=== PATIENT | male | born 1950 | race Caucasian/White ===

== ENCOUNTER 2018-06-02 07:40 | Outpatient (CLI) | payer OTHER ==
--- NOTE | 2018-06-04 20:04 | MRI Report ---
Procedure Date: 06/02/2018 Accession Number: [id number] / [id number] Procedure: MRI - Brain W/O CPT Code: FULL RESULT: EXAM: MRI BRAIN WITHOUT CONTRAST EXAM DATE: 06/02/2018 08:37 AM. CLINICAL HISTORY: 67-year-old male, chronic headache, history of TBI. COMPARISON: None. TECHNIQUE: Multiplanar, multisequence T1-weighted and fluid-sensitive MR sequences of the brain were performed. Sequences optimized for routine evaluation. Other: None. IV Contrast: None. FINDINGS: Brain Volume: Normal for age. Parenchyma/Dura: No mass, acute infarct or hemorrhage. Moderate scattered T2/FLAIR hyperintense periventricular, deep, and subcortical white matter lesions within cerebral hemispheres bilaterally. No parenchymal foci of susceptibility artifact. Ventricles/Cisterns: No hydrocephalus. No abnormal extra-axial fluid collection or hemorrhage. Orbits: Status post right lens replacement surgery. Otherwise unremarkable. Sella Turcica: The pituitary gland, cavernous sinuses, suprasellar cistern and optic chiasm are unremarkable. IAC: Symmetric and unremarkable. Vasculature: Normal signal flow void is seen in the major arterial structures at the skull base. Sinuses: No acute appearing sinus disease. Bones: No focal pathologic appearing marrow signal changes. Other: None. IMPRESSION: 1. No MRI evidence of acute intracranial abnormality. Specifically, no evidence of acute or subacute infarct, acute intracranial hemorrhage, mass, midline shift, or hydrocephalus. 2. Moderate scattered T2/FLAIR hyperintense periventricular, deep, and subcortical white matter lesions within cerebral hemispheres bilaterally. These lesions are nonspecific, and can be seen with the entire gamut of white matter conditions, including migraine headaches and as sequela of chronic microangiopathy. RADIA
== END 2018-06-02 07:41 | disposition home or self-care (01) ==
LOC: DI 07:40
PROVIDERS: ATTEND Family Medicine
DX: R51 Headache (principal); Z87.820 Personal history of traumatic brain injury
CPT/HCPCS: 70551

== ENCOUNTER 2019-02-22 07:58 | Outpatient (CLI) | payer OTHER | END 2019-02-22 07:59 | disposition critical access hospital (66) | LOC: EMS 07:58 | PROVIDERS: ATTEND Surgery | DX: R07.9 Chest pain, unspecified (principal) | CPT/HCPCS: A0425; A0427 ==

== ENCOUNTER 2019-02-22 08:28 | Emergency (ER) | payer OTHER ==
[2019-02-22] MEDS ORDERED: amLODIPine 5 MG TABLET PO STA (08:48)
[2019-02-22] MEDS ORDERED: SODIUM CHLORIDE 0.9% 1,000 ML IV ONE (08:48)
--- NOTE | 2019-02-22 08:51 | ED Physician Documentation ---
PD HPI CHEST PAIN - Stated complaint Stated Complaint: CP - Chief complaint Chief Complaint: Cardiac - History obtained from History obtained from: Patient, Family, EMS - History of Present Illness Timing - onset: Enter time (544), Today Timing - onset during: Rest Timing - duration: Minutes Timing - details: Abrupt onset, Still present Pain level max: 7 Pain level now: 1 Quality: Aching Location: Substernal Radiation: Neck Improved by: Rest, Nitro Associated symptoms: No: Shortness of air, Diaphoresis, Nausea, Vomiting, Feeling faint / dizzy, General Weakness, Palpitations, Cough Similar symptoms before: Has not had sx before Recently seen: Not recently seen - Additional information Additional information: 68-year-old male with a history of hypertension has developed substernal chest pain this morning and his blood pressure is noted to be markedly elevated with systolics over 200. He is brought to the hospital by ambulance having received nitroglycerin and aspirin and his pain is mostly resolved. He states that he had previously been on amlodipine and hydrochlorothiazide and he developed a lot of muscle cramping and difficulty walking and so he discontinued these medications and has been on prazosin which has been working. He states he took his prazosin last night 4 mg and this morning 2 mg. He denies any likelihood of alcohol withdrawal as he drinks once to twice per week and he does state that he did have some salty meal yesterday but not anything in excess. Review of Systems Constitutional: denies: Fever, Chills, Myalgias, Fatigue Eyes: denies: Decreased vision Ears: denies: Ear pain Nose: denies: Rhinorrhea / runny nose, Congestion Throat: denies: Sore throat Cardiac: reports: Chest pain / pressure. denies: Palpitations, Pedal edema, Calf pain Respiratory: denies: Dyspnea, Cough GI: denies: Abdominal Pain, Nausea, Vomiting : denies: Dysuria, Frequency PD PAST MEDICAL HISTORY - Past Medical History Cardiovascular: Hypertension Psych: Post traumatic stress disorder - Present Medications Home Medications: Ambulatory Orders Medication Instructions Recorded Confirmed Prazosin HCl [Minipress] 12 mg PO DAILY 10/25/14 10/25/14 oxyCODONE/ACET 5/325 [Percocet 5 1 - 2 each PO Q4-6H PRN #15 tablet 10/25/14 mg/325 mg] amLODIPine [Norvasc] 10 mg PO DAILY #20 tablet 02/22/19 - Allergies Allergies/Adverse Reactions: Allergies Allergy/AdvReac Type Severity Reaction Status Date / Time codeine Allergy Severe Hives Verified 02/22/19 08:35 - Social History Does the pt smoke?: No Smoking Status: Never smoker Does the pt drink ETOH?: No Does the pt have substance abuse?: No - Immunizations Immunizations are current?: Yes - POLST Patient has POLST: No PD ED PE NORMAL - Vitals Vital signs reviewed: Yes (hypertension marked ) - General General: Alert and oriented X 3, No acute distress, Well developed/nourished - HEENT HEENT: Atraumatic, PERRL, EOMI - Neck Neck: Supple, no meningeal sign, No bony TTP - Cardiac Cardiac: RRR, No murmur - Respiratory Respiratory: No respiratory distress, Clear bilaterally - Abdomen Abdomen: Soft, Non tender - Back Back: No CVA TTP, No spinal TTP - Derm Derm: Normal color, Warm and dry, No rash - Extremities Extremities: No deformity, No edema - Neuro Neuro: Alert and oriented X 3, 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, No motor deficit, No sensory deficit, Normal speech Eye Opening: Spontaneous Motor: Obeys Commands Verbal: Oriented GCS Score: 15 - Psych Psych: Normal mood, Normal affect Results - Vitals Vitals: Vital Signs - 24 hr 02/22/19 02/22/19 02/22/19 08:32 09:26 12:17 Temperature 36.3 C L 36.2 C L Heart Rate 86 69 83 Respiratory 18 12 18 Rate Blood Pressure 202/104 H 160/84 H 187/101 H O2 Saturation 98 98 97 Oxygen O2 Source Room air - EKG (time done) 0837 Rate: Rate (enter#) (79) QRS: LVH, Poor R wave progression Ischemia: Normal ST segments Compare to prior EKG: Old EKG unavailable Computer interpretation: Agree with computer - Labs Labs: Laboratory Tests 02/22/19 02/22/19 02/22/19 08:57 08:57 08:57 WBC 6.5 RBC 4.76 Hgb 13.7 L Hct 41.7 L MCV 87.8 MCH 28.9 MCHC 32.9 RDW 13.7 Plt Count 200 MPV 8.0 Neut # (Auto) 4.7 Lymph # (Auto) 1.1 L Mccone # (Auto) 0.4 Eos # (Auto) 0.1 Baso # (Auto) 0.1 Absolute Nucleated RBC 0.00 Nucleated RBC % 0.1 Sodium 137 Potassium 3.7 Chloride 104 Carbon Dioxide 24 Anion Gap 9.0 BUN 16 Creatinine 0.9 Estimated GFR (MDRD) 83 L Glucose 131 H Calcium 9.0 Total Bilirubin 0.5 AST 24 ALT 19 Alkaline Phosphatase 54 Troponin I < 0.04 Total Protein 7.6 Albumin 3.9 Globulin 3.7 Albumin/Globulin Ratio 1.1 Lipase 24 02/22/19 11:10 WBC RBC Hgb Hct MCV MCH MCHC RDW Plt Count MPV Neut # (Auto) Lymph # (Auto) Mccone # (Auto) Eos # (Auto) Baso # (Auto) Absolute Nucleated RBC Nucleated RBC % Sodium Potassium Chloride Carbon Dioxide Anion Gap BUN Creatinine Estimated GFR (MDRD) Glucose Calcium Total Bilirubin AST ALT Alkaline Phosphatase Troponin I < 0.04 Total Protein Albumin Globulin Albumin/Globulin Ratio Lipase - Rads (name of study) chest Radiology: Prelim report reviewed (Impression: No acute cardiopulmonary abnormality.), EMP read indepedently, See rad report Procedures - IVC sono (time) 0845 Bedside IVC sono: IVC measures (cm) (1.19), IVC collapsed c insp (cm) (compl ete), Dehydration (est 1 liter deficit) PD MEDICAL DECISION MAKING - ED course Complexity details: reviewed old records, reviewed results, re-evaluated patient, considered differential, d/w patient, d/w family ED course: 68-year-old male presents to the [facility] with substernal chest pain is found to have marked elevation in his blood pressure he is administered some amlodipine his blood pressure comes down substantially and his pain shifts into the upper chest and he recalls this pain more closely with reflux disease and he is administered a GI cocktail with resolution of his pain. I suspect his pain may have always been related to his esophagus and he does have hypertension which was out of control today. We will place him back on his amlodipine and he will follow-up with his primary Dr. Worrell regarding whether to continue the prazosin. Departure - Departure Disposition: 01 Home, Self Care Clinical Impression: GERD with esophagitis Hypertension Qualifiers: Hypertension type: essential hypertension Qualified Code(s): I10 - Essential (primary) hypertension Condition: Stable Instructions: ED GERD, ED HTN Established Follow-Up: Kenyon Worrell MD [Primary Care Provider] - Prescriptions: amLODIPine [Norvasc] 10 mg PO DAILY #20 tablet
--- NOTE | 2019-02-22 09:03 | XRAY Report ---
Reason: chest pain Procedure Date: 02/22/2019 Accession Number: [id number] / [id number] Procedure: XR - Chest 1 View X-Ray CPT Code: 75186 FULL RESULT: EXAM: CHEST RADIOGRAPHY EXAM DATE: 02/22/2019 08:56 AM. CLINICAL HISTORY: Chest pain. COMPARISON: [facility] W/PA CHEST LT 10/25/2014 9:36 AM. TECHNIQUE: 1 view. FINDINGS: Lungs/Pleura: No focal opacities evident. No pleural effusion. No pneumothorax. Mediastinum: Heart size is normal. Mildly tortuous, calcified aorta. Other: None. IMPRESSION: No acute cardiopulmonary abnormality. RADIA
[2019-02-22 09:04] LABS: BASOPHILS # (AUTO) 0.1 10^3/uL (0.0-0.1); BASOPHILS % (AUTO) 1.7 %; EOSINOPHILS # (AUTO) 0.1 10^3/uL (0.0-0.7); EOSINOPHILS % (AUTO) 1.1 %; HGB - HEMOGLOBIN 13.7 g/dL (14.0-18.0); LYMPHOCYTES # (AUTO) 1.1 10^3/uL (1.5-3.5); LYMPHOCYTES % (AUTO) 17.8 %; MEAN CORPUSCULAR HEMOGLOBIN 28.9 pg (27.0-31.0); MEAN CORPUSCULAR HGB CONC 32.9 g/dL (32.0-36.0); MEAN CORPUSCULAR VOLUME 87.8 fL (80.0-94.0); MONOCYTES # (AUTO) 0.4 10^3/uL (0.0-1.0); MONOCYTES % (AUTO) 6.5 %; NEUTROPHILS # (AUTO) 4.7 10^3/uL (1.5-6.6); NEUTROPHILS % (AUTO) 72.9 %; PLT - PLATELET COUNT 200 10^3/uL (130-450); RED BLOOD COUNT 4.76 10^6/uL (4.70-6.10); RED CELL DISTRIBUTION WIDTH 13.7 % (12.0-15.0); WHITE BLOOD COUNT 6.5 x10^3/uL (4.8-10.8)
[2019-02-22 09:17] LABS: ALBUMIN 3.9 g/dL (3.2-5.5); ALBUMIN/GLOBULIN RATIO 1.1 (1.0-2.2); BILIRUBIN,TOTAL 0.5 mg/dL (0.2-1.0); CREATININE 0.9 mg/dL (0.6-1.2); TOTAL PROTEIN 7.6 g/dL (6.7-8.2)
[2019-02-22] MEDS ORDERED: MAG HYDROX/AL HYDROX/SIMETH 30 ML UDC PO STA (11:58)
[2019-02-22] MEDS ORDERED: LIDOCAINE VISCOUS 2% 15 ML UDC MM STA (11:58)
[2019-02-22 12:18] VITALS: BP 187/101
== END 2019-02-22 12:27 | disposition home or self-care (01) ==
LOC: EDUNIT# → ED 08:28
DX: K21.0 Gastro-esophageal reflux disease with esophagitis (principal); E86.0 Dehydration; I10 Essential (primary) hypertension
CPT/HCPCS: 36415; 71045; 80053; 83690; 84484; 85025; 93005; 96360; 99284; A9270

== ENCOUNTER 2020-08-09 12:43 | Outpatient (CLI) | payer OTHER ==
--- NOTE | 2020-08-09 13:47 | XRAY Report ---
PROCEDURE: Finger(s) RT INDICATIONS: PAIN IN RT FINGER TECHNIQUE: AP hand, 3 views of the third finger(s) acquired. COMPARISON: None FINDINGS: Bones: No fractures or dislocations. No suspicious bony lesions. Soft tissues: No suspicious soft tissue calcifications. IMPRESSION: No osseous abnormality is identified. Reviewed by: Samantha Mcgowan MD on 08/09/2020 1:46 PM PDT Approved by: Samantha Mcgowan MD on 08/09/2020 1:46 PM PDT Station ID: [id number]
== END 2020-08-09 12:44 | disposition home or self-care (01) ==
LOC: DI.S 12:43
PROVIDERS: ATTEND Nurse Practitioner Family
DX: M79.644 Pain in right finger(s) (principal)
CPT/HCPCS: 73140

== ENCOUNTER 2022-04-05 12:54 | Outpatient (CLI) | payer OTHER ==
--- NOTE | 2022-04-05 13:11 | XRAY Report ---
PROCEDURE: Shoulder 3 View RT INDICATIONS: ACUTE RIGHT SHOULDER PAIN TECHNIQUE: Views of the location were acquired. COMPARISON: None. FINDINGS: Bones: No fractures or dislocations. No suspicious bony lesions. Degenerative changes of the righ t acromioclavicular joint and glenohumeral joint. Soft tissues: No suspicious soft tissue calcifications. IMPRESSION: 1. No acute abnormality of the right shoulder. 2. Mild degenerative changes at the acromioclavicular joint and glenohumeral joint. Reviewed by: Leo Mendenhall on 04/05/2022 1:10 PM PDT Approved by: Leo Mendenhall on 04/05/2022 1:10 PM PDT Station ID: [id number]
== END 2022-04-05 23:59 | disposition home or self-care (01) ==
LOC: DI.S 12:54
PROVIDERS: ATTEND Nurse Practitioner Family
DX: M19.011 Primary osteoarthritis, right shoulder (principal)

== ENCOUNTER 2023-01-11 08:18 | Outpatient (CLI) | payer OTHER ==
[2023-01-11 14:40] LABS: BASOPHILS # (AUTO) 0.1 10^3/uL (0.0-0.1); BASOPHILS % (AUTO) 1.1 %; EOSINOPHILS # (AUTO) 0.1 10^3/uL (0.0-0.7); EOSINOPHILS % (AUTO) 1.3 %; HCT - HEMATOCRIT 43.3 % (42.0-52.0); HGB - HEMOGLOBIN 13.6 g/dL (14.0-18.0); LYMPHOCYTES # (AUTO) 1.6 10^3/uL (1.5-3.5); MEAN CORPUSCULAR HEMOGLOBIN 27.8 pg (27.0-31.0); MEAN CORPUSCULAR HGB CONC 31.4 g/dL (32.0-36.0); MEAN CORPUSCULAR VOLUME 88.4 fL (80.0-94.0); MEAN PLATELET VOLUME 10.6 fL (7.4-11.4); MONOCYTES # (AUTO) 0.5 10^3/uL (0.0-1.0); NEUTROPHILS # (AUTO) 3.4 10^3/uL (1.5-6.6); NEUTROPHILS % (AUTO) 61.4 %; PLT - PLATELET COUNT 272 10^3/uL (130-450); RED CELL DISTRIBUTION WIDTH 15.4 % (12.0-15.0); WHITE BLOOD COUNT 5.6 x10^3/uL (4.8-10.8)
[2023-01-11 15:04] LABS: PSA TOTAL 3.258 ng/mL (0.000-2.000)
[2023-01-11 15:32] LABS: ALBUMIN 4.1 g/dL (3.2-5.5); ALBUMIN/GLOBULIN RATIO 1.2 (1.0-2.2); ALKALINE PHOSPHATASE 48 IU/L (42-121); ALT ALANINE AMINOTRANSFERASE 21 IU/L (10-60); AST ASPARTATE AMINOTRANSFERASE 24 IU/L (10-42); BILIRUBIN,TOTAL 0.7 mg/dL (0.2-1.0); BUN - BLOOD UREA NITROGEN 13 mg/dL (6-20); CALCIUM 8.7 mg/dL (8.5-10.3); CARBON DIOXIDE - CO2 28 mmol/L (21-32); CHLORIDE 104 mmol/L (101-111); CHOL/HDL RATIO 2.8 (<5.0); CHOLESTEROL 174 mg/dL; CREATININE 0.8 mg/dL (0.6-1.2); GFR - MDRD 94 (>89); GLUCOSE 105 mg/dL (70-100); HDL CHOLESTEROL 62 mg/dL; LDL CHOLESTEROL,CALCULATED 101 mg/dL; LDL/HDL RATIO 1.6 (<3.6); POTASSIUM 3.5 mmol/L (3.5-5.0); SODIUM 138 mmol/L (135-145); TOTAL PROTEIN 7.6 g/dL (6.7-8.2); TRIGLYCERIDES 56 mg/dL; VLDL CHOLESTEROL 11 mg/dL
[2023-01-11 16:00] LABS: PSA FREE 0.653 ng/mL (0.16-2.81)
[2023-01-14 13:58] LABS: ESTIMATED AVERAGE GLUCOSE 120 mg/dL (70-100); HEMOGLOBIN A1c% 5.8 % (4.27-6.07)
== END 2023-01-11 08:19 | disposition home or self-care (01) ==
LOC: LAB.S 08:18
PROVIDERS: ATTEND Internal Medicine
DX: I10 Essential (primary) hypertension (principal); M25.50 Pain in unspecified joint; Z12.5 Encounter for screening for malignant neoplasm of prostate; R73.01 Impaired fasting glucose
CPT/HCPCS: 36415; 80053; 80061; 83036; 83721; 84153; 84154; 84443; 85025